=== PATIENT | female | born 1955 | race Two or more races ===

== ENCOUNTER 2020-10-22 22:24 | Inpatient (IN) | payer MEDICAID ==
[~2020-10-22] VITALS: Ht 160 cm; Wt 129.7 kg
--- NOTE | 2020-10-23 00:25 | NUR ---
MALTED MILK MIXER NOTE ADMITTED PT FROM [facility] A DIRECT ADMIT FOR DRY COUGH, HEADACHE, GENERALIZED WEAKNESS, AND COVID POSITIVE. REPORT RECEIVED FROM DEBRA GUTIERREZ FROM [facility]. PATIENT IS A&OX4, AMBULATORY. PT NOW ON TELE MONITOR WITH NORMAL SR. PT O2 SAT WAS 90% ON RA, PT PUT ON 2L O2 VIA NC NOW SATURATING 97-98%. NO S/S OF RESPIRATORY DISTRESS, SOB. SKIN ASSESSMENT IMPLEMENTED WITH NO S/S IF SKIN PROBLEMS. PT DENIES ANY PAIN. PT HAS RIGHT AC IV LINE 20 GAUGE FLUSHING WELL AND INTACT. ALL SAFETY MEASURES IMPLEMENTED. BED LOCKED AND IN LOWEST POSITION. SIDE RAILS UP. CALL LIGHT WITHIN REACH. BED ALARM ON. WILL CONTINUE TO MONITOR THROUGHOUT THE SHIFT.
[2020-10-23] MEDS ORDERED: ONDANSETRON HCL/PF 4 MG/2 ML VIAL IVP PRN (01:30)
[2020-10-23] MEDS ORDERED: ALBUTEROL SULFATE 8 GM HFA.AER.AD IH PRN (01:30)
[2020-10-23 04:00] VITALS: BP 133/72
[2020-10-23 06:01] LABS: BASOPHILS % (AUTO) 0.5 % (0.0-2.0); EOSINOPHILS % (AUTO) 0.1 % (0.0-6.0); HEMATOCRIT 36 % (33-45); HEMOGLOBIN 11.9 g/dL (11.5-14.8); LYMPHOCYTES # (AUTO) 0.6 K/uL (0.8-4.8); LYMPHOCYTES % (AUTO) 8.8 % (20.0-44.0); MEAN CORPUSCULAR HGB CONC 33 g/dl (31.0-36.0); MEAN CORPUSCULAR VOLUME 88 fL (82-100); MONOCYTES # (AUTO) 0.5 K/uL (0.1-1.30); MONOCYTES % (AUTO) 8.4 % (2.0-12.0); NEUTROPHILS # (AUTO) 5.2 K/uL (1.8-8.9); NEUTROPHILS % (AUTO) 82.2 % (43.0-81.0); PLATELET COUNT (AUTO) 178 K/uL (150-450); RED BLOOD CELL COUNT(AUTO) 4.07 MIL/uL (4.0-5.2); WHITE BLOOD COUNT (AUTO) 6.3 K/uL (4.3-11.0)
[2020-10-23] MEDS: ENOXAPARIN SODIUM 40 MG/0.4 ML DISP.SYRIN SQ SCH (06:05)
[2020-10-23] MEDS: ACETAMINOPHEN 325 MG TABLET PO PRN ×2 (06:16→12:33)
--- NOTE | 2020-10-23 06:18 | NUR ---
RN NOTES PT HAD LOW GRADE FEVER 100.0. TYLENOL 650 MG PO ADMINISTERED TO HELP REDUCE TEMP. WILL CONTINUE TO ASSESS.
--- NOTE | 2020-10-23 06:32 | NUR ---
RN CLOSING NOTES PT IS IN BED, ALERT AND ORIENTED X4. RESTING WITH NO S/S OF DISTRESS. PATIENT IS ON 2L OF 02 VIA NC WITH OXYGEN SATURATION 95% SHOWING NO S/S OF SOB, RESPIRATORY DISTRESS. PATIENT IS NORMAL SR. PT HAS RIGHT AC 20 G FLUSHED INTACT AND PATENT. ALL SAFETY PRECAUTIONS INITIATED. BED LOCKED AND IN LOWEST POSITION. BED ALARM ON. CALL LIGHT WITHIN REACH. SIDE RAILS UP. WILL ENDORSE TO MORNING SHIFT FOR ALEENA.
[2020-10-23 06:41] LABS: ALBUMIN 3.6 g/dL (3.4-5.0); BILIRUBIN,TOTAL 0.3 mg/dL (0.2-1.0); CALCIUM, SERUM 8.4 mg/dL (8.5-10.1); POTASSIUM 3.8 mmol/L (3.5-5.1); TOTAL PROTEIN, SERUM 7.8 g/dL (6.4-8.2)
[2020-10-23 07:41] LABS: D-DIMER 7.54 mg/L(FEU (0.17-0.50)
[2020-10-23 07:56] LABS: C-REACTIVE PROTEIN 9.5 mg/dL (0.0-0.9)
[2020-10-23 08:00] VITALS: BP 104/54
[2020-10-23] MEDS ORDERED: HYDR12.55 PO (08:11)
[2020-10-23] MEDS ORDERED: AMLO-213 PO (08:11)
[2020-10-23] MEDS ORDERED: ROSU20TA2 PO (08:11)
--- NOTE | 2020-10-23 11:28 | NUR ---
Patient refuses cooling measures at this time. Ervin Narayan RN
[2020-10-23 12:00] VITALS: BP 125/67
[2020-10-23] MEDS: AZITHROMYCIN 500 MG in IV D5W 250 ML IV SCH (13:40)
[2020-10-23] MEDS: DEXAMETHASONE SOD PHOSPHATE 10 MG/ML VIAL IV SCH (13:40)
[2020-10-23 16:00] VITALS: BP 128/62
[2020-10-23] MEDS ORDERED: REMDESIVIR (CHARGED) 200 MG, *LOADING DOSE 1 EA in IV NS 0.9% 210 ML IV ONE (16:00)
--- NOTE | 2020-10-23 19:30 | NUR ---
RN OPENING NOTE PT RECEIVED IN BED A&OX4, AMBULATORY. PT ON TELE MONITOR WITH NORMAL SR. PT ON 2L O2 VIA NC SATURATING >95%. NO S/S OF RESPIRATORY DISTRESS, SOB. PT HAS RIGHT AC IV LINE 20 GAUGE FLUSHING WELL AND INTACT. ALL SAFETY MEASURES IMPLEMENTED. BED LOCKED AND IN LOWEST POSITION. SIDE RAILS UP. CALL LIGHT WITHIN REACH. BED ALARM ON. WILL CONTINUE TO MONITOR THROUGHOUT THE SHIFT.
[2020-10-23 20:00] VITALS: BP 133/62
[2020-10-23] MEDS: CEFTRIAXONE 1 G in IV D5W 50 ML IV SCH (22:08)
[2020-10-24] VITALS: BP 128/71
[2020-10-24 04:00] VITALS: BP 132/68
[2020-10-24 05:59] LABS: BASOPHILS % (AUTO) 0.3 % (0.0-2.0); HEMATOCRIT 34 % (33-45); HEMOGLOBIN 11.4 g/dL (11.5-14.8); LYMPHOCYTES # (AUTO) 0.6 K/uL (0.8-4.8); LYMPHOCYTES % (AUTO) 15.1 % (20.0-44.0); MEAN CORPUSCULAR HGB CONC 33 g/dl (31.0-36.0); MEAN CORPUSCULAR VOLUME 90 fL (82-100); MONOCYTES # (AUTO) 0.5 K/uL (0.1-1.30); MONOCYTES % (AUTO) 12.5 % (2.0-12.0); NEUTROPHILS % (AUTO) 72.1 % (43.0-81.0); PLATELET COUNT (AUTO) 168 K/uL (150-450); RED BLOOD CELL COUNT(AUTO) 3.84 MIL/uL (4.0-5.2); WHITE BLOOD COUNT (AUTO) 4.1 K/uL (4.3-11.0)
[2020-10-24 06:23] LABS: ALBUMIN 3.2 g/dL (3.4-5.0); BILIRUBIN,TOTAL 0.3 mg/dL (0.2-1.0); CALCIUM, SERUM 8.1 mg/dL (8.5-10.1); POTASSIUM 4.1 mmol/L (3.5-5.1); TOTAL PROTEIN, SERUM 7.3 g/dL (6.4-8.2)
--- NOTE | 2020-10-24 06:43 | NUR ---
RN CLOSING NOTES NO SIGNIFICANT CHANGES IN PT CONDITION. PT IS IN BED, ALERT AND ORIENTED X4. PATIENT IS ON 2L OF 02 VIA NC WITH OXYGEN SATURATION >94% SHOWING NO S/S OF SOB, RESPIRATORY DISTRESS. PATIENT IS NORMAL SINUS RHYTHM. PT HAS RIGHT AC 20G FLUSHED INTACT AND PATENT. ALL SAFETY PRECAUTIONS INITIATED. BED LOCKED AND IN LOWEST POSITION. BED ALARM ON. CALL LIGHT WITHIN REACH. SIDE RAILS UP. WILL ENDORSE TO MORNING SHIFT FOR ALEENA.
[2020-10-24 08:00] VITALS: BP 128/71
[2020-10-24] MEDS: PANTOPRAZOLE 40 MG TABLET.DR PO SCH (08:13)
[2020-10-24] MEDS: DEXAMETHASONE SOD PHOSPHATE 10 MG/ML VIAL IV SCH (08:36)
[2020-10-24] MEDS: ENOXAPARIN SODIUM 40 MG/0.4 ML DISP.SYRIN SQ SCH (08:37)
--- NOTE | 2020-10-24 11:35 | NUR ---
Doctor Debra ambrose. Informed about convalescent plasma request per daughter. No order at this time per MD. Funeral Director/Embalmer obtained consent for blood transfusion 10/23/20 per orders. Ervin Narayan RN
[2020-10-24 12:00] VITALS: BP 131/59
[2020-10-24] MEDS: AZITHROMYCIN 500 MG in IV D5W 250 ML IV SCH (13:14)
[2020-10-24] MEDS: REMDESIVIR (CHARGED) 100 MG in IV NS 0.9% 100 ML IV SCH (15:53)
[2020-10-24 16:00] VITALS: BP 108/55
--- NOTE | 2020-10-24 19:45 | NUR ---
RN NOTE RECEIVED PT IN BED, ON O2 VIA NC AT 3L. SATING 98 %. DENIES SOB OR PAIN. NO DISCOMFORT NOTED. ON TELE MONITORING SHOWS SR. PT INDEPENDENT, ABLE TO SIT ON SIDE OF THE BED AND AMBULATES TO RESTROOM. IV ON RAC, FLUSHES WELL. ALL SAFETY IN PLACE. WILL CONTINUE TO MONITOR.
[2020-10-24 20:00] VITALS: BP 132/64
[2020-10-24] MEDS: CEFTRIAXONE 1 G in IV D5W 50 ML IV SCH (21:15)
[2020-10-25] VITALS: BP 122/35
[2020-10-25 04:00] VITALS: BP 110/58
[2020-10-25 06:34] LABS: BASOPHILS % (AUTO) 0.2 % (0.0-2.0); HEMATOCRIT 36 % (33-45); HEMOGLOBIN 11.7 g/dL (11.5-14.8); LYMPHOCYTES # (AUTO) 0.8 K/uL (0.8-4.8); LYMPHOCYTES % (AUTO) 29.4 % (20.0-44.0); MEAN CORPUSCULAR HGB CONC 33 g/dl (31.0-36.0); MEAN CORPUSCULAR VOLUME 89 fL (82-100); MONOCYTES # (AUTO) 0.5 K/uL (0.1-1.30); NEUTROPHILS # (AUTO) 1.5 K/uL (1.8-8.9); NEUTROPHILS % (AUTO) 53.4 % (43.0-81.0); PLATELET COUNT (AUTO) 177 K/uL (150-450); RED BLOOD CELL COUNT(AUTO) 4.04 MIL/uL (4.0-5.2); WHITE BLOOD COUNT (AUTO) 2.7 K/uL (4.3-11.0)
--- NOTE | 2020-10-25 06:45 | NUR ---
RN NOTE PT ABLE TO MAKE NEEDS KNOWN. REMAIN AFEBRILE. NO RESP DISTRESS NOTED. TOLERATING O2 AT 3L. DENIES ANY SOB OR PAIN. ALL NEEDS ATTENDED. VS STABLE. WILL ENDORSE TO NEXT SHIFT NURSE FOR ALEENA.
[2020-10-25 07:43] LABS: ALBUMIN 3.1 g/dL (3.4-5.0); BILIRUBIN,DIRECT 0.1 mg/dL (0.0-0.2); BILIRUBIN,TOTAL 0.2 mg/dL (0.2-1.0); CALCIUM, SERUM 8.4 mg/dL (8.5-10.1); CREATININE 0.9 mg/dL (0.6-1.3); POTASSIUM 4.3 mmol/L (3.5-5.1); TOTAL PROTEIN, SERUM 7.2 g/dL (6.4-8.2)
[2020-10-25 08:00] VITALS: BP 101/53
[2020-10-25] MEDS: PANTOPRAZOLE 40 MG TABLET.DR PO SCH (08:03)
[2020-10-25] MEDS: DEXAMETHASONE SOD PHOSPHATE 10 MG/ML VIAL IV SCH (08:03)
[2020-10-25] MEDS: ENOXAPARIN SODIUM 40 MG/0.4 ML DISP.SYRIN SQ SCH (08:04)
--- NOTE | 2020-10-25 09:34 | NUR ---
RN NOTE PATIENT IS IN BED WITH HOB AT SEMI FOWLERS POSITION. PATIENT IS ON 3L NC WITH NO SIGNS OF LABORED BREATHING. PATIENT IS AOX4. RAC 20 IS PATENT AND INTACT. BED IS LOCKED IN THE LOWEST POSITION, 3 GUARD RAILS RAISED, CALL MOSES WITHIN REACH, AND ALL HOSPITAL SAFETY PRECAUTIONS ARE BEING FOLLOWED. WILL CONTINUE TO MONITOR THROUGHOUT SHIFT.
[2020-10-25] MEDS ORDERED: GUAIFENESIN/D-METHORPHAN HB 5 ML UDC PO PRN (11:00)
[2020-10-25 12:00] VITALS: BP 105/43
[2020-10-25 12:02] LABS: BAND % (MANUAL) 4 % (0.0-5.0); LYMPHOCYTES % (MANUAL) 23 % (16-48); MONOCYTES % (MANUAL) 21 % (0-11.0); NEUTROPHILS % (MANUAL) 52 (42-76)
[2020-10-25] MEDS: AZITHROMYCIN 500 MG in IV D5W 250 ML IV SCH (13:07)
[2020-10-25] MEDS: REMDESIVIR (CHARGED) 100 MG in IV NS 0.9% 100 ML IV SCH (15:42)
[2020-10-25 16:00] VITALS: BP 120/59
--- NOTE | 2020-10-25 18:52 | NUR ---
RN NOTE PATIENT IS IN BED WITH HOB AT SEMI FOWLERS POSITION. PATIENT IS ON 3L NC WITH NO SIGNS OF LABORED BREATHING. PATIENT IS AOX4. RAC 20 IS PATENT AND INTACT. BED IS LOCKED IN THE LOWEST POSITION, 3 GUARD RAILS RAISED, CALL MOSES WITHIN REACH, AND ALL HOSPITAL SAFETY PRECAUTIONS ARE BEING FOLLOWED. ALL DUE MEDS GIVEN AND PATIENT REMAINED STABLE THROUGHOUT SHIFT. WILL ENDORSE TO SHADE CUTTER RN.
--- NOTE | 2020-10-25 19:20 | NUR ---
RN OPENING NOTES RECD PT IN BED, A/O X4, SWEDISH SPEAKING, UNDERSTANDS ROMANSH ABLE TO MAKE NEEDS KNOWN. PT IS ON ROOM AIR AT THIS TIME, NO SOB NOTED NO RESP DISTRESS. PT IS ON TELE MONITORING PRESENTS WITH NSR HR IN 70S. PT HAS IV RAC, FLUSHED PATENT. PT IS AMBULATORY WITH STEADY GAIT. ALL NEEDS ATTENDED. PT DENIES PAIN. SAFETY MEASURES IN PLACE HOB ELEVATED. SIDE RAILS UP X2 BED LOCKED IN LOWEST POSITION WITH BED ALARM ON, CALL LIGHT WITHIN REACH. WILL CONT TO MONITOR THROUGHOUT SHIFT CLOSELY.
[2020-10-25 20:00] VITALS: BP 117/62
[2020-10-25] MEDS: CEFTRIAXONE 1 G in IV D5W 50 ML IV SCH (21:13)
[2020-10-26] VITALS: BP 113/68
[2020-10-26 04:00] VITALS: BP 120/59
[2020-10-26 06:53] LABS: BASOPHILS % (AUTO) 0.2 % (0.0-2.0); HEMATOCRIT 35 % (33-45); HEMOGLOBIN 11.7 g/dL (11.5-14.8); LYMPHOCYTES # (AUTO) 1.2 K/uL (0.8-4.8); LYMPHOCYTES % (AUTO) 28.2 % (20.0-44.0); MEAN CORPUSCULAR HGB CONC 33 g/dl (31.0-36.0); MEAN CORPUSCULAR VOLUME 90 fL (82-100); MONOCYTES # (AUTO) 0.6 K/uL (0.1-1.30); MONOCYTES % (AUTO) 15.1 % (2.0-12.0); NEUTROPHILS # (AUTO) 2.4 K/uL (1.8-8.9); NEUTROPHILS % (AUTO) 56.5 % (43.0-81.0); PLATELET COUNT (AUTO) 182 K/uL (150-450); RED BLOOD CELL COUNT(AUTO) 3.94 MIL/uL (4.0-5.2); WHITE BLOOD COUNT (AUTO) 4.2 K/uL (4.3-11.0)
--- NOTE | 2020-10-26 06:55 | NUR ---
RN CLOSING NOTE NO SIGNIFICANT CHANGES IN PT CONDITION. STILL ON 3L OF O2 VIA NC. TOLERATING WELL. ALL NEEDS ATTENDED. ALL DUE MEDS GIVEN. PT DENIES PAIN. PT GOES HR 49-50S WHEN ASLEEP, AT THIS TIME, HR IS AT 53. SAFETY MEASURES IN PLACE. HOB. ELEVATED. SIDE RAILS UP X2 BED LOCKED IN LOWEST POSITION. WILL ENDORSE TO DAY SHIFT RN FOR CONTINUATION OF CARE.
[2020-10-26 06:59] LABS: ALBUMIN 3.1 g/dL (3.4-5.0); BILIRUBIN,DIRECT 0.1 mg/dL (0.0-0.2); BILIRUBIN,TOTAL 0.2 mg/dL (0.2-1.0); CALCIUM, SERUM 9.1 mg/dL (8.5-10.1); CREATININE 0.9 mg/dL (0.6-1.3); MAGNESIUM 2.1 mg/dL (1.8-2.4); PHOSPHORUS 3.3 mg/dL (2.5-4.9); POTASSIUM 4.5 mmol/L (3.5-5.1); TOTAL PROTEIN, SERUM 6.9 g/dL (6.4-8.2)
[2020-10-26] MEDS: PANTOPRAZOLE 40 MG TABLET.DR PO SCH (07:45)
--- NOTE | 2020-10-26 07:47 | NUR ---
RN OPENING NOTES RECEIVED PATIENT IS ON BED AWAKE ALERT AND ORIENTED X4. PATIENT IS ON 3L OXYGEN VIA NASAL CANNULA TOLERATING WELL. PATIENT IN NO APPARENT RESPIRATORY DISTRESS NOTED. NO COMPLAINED OF PAIN AT THIS TIME. WILL CONTINUE TO MONITOR.
[2020-10-26 08:00] VITALS: BP 148/70
[2020-10-26 08:30] LABS: ABG BASE EXCESS 5.2 mmol/L; ABG PCO2 43.2 mmHg (35.0-45.0); ABG PH 7.455 (7.350-7.450); ABG PO2 59.3 mmHg (75.0-100.0); AaDO2 38.7 mmHg; COHb 0.1 % (0.5-1.5); O2Hb 91.9 % (94.0-97.0); SITE, ABG Right Radial; VENT MODE, BG room air
[2020-10-26] MEDS: DEXAMETHASONE SOD PHOSPHATE 10 MG/ML VIAL IV SCH (08:33)
[2020-10-26] MEDS: ENOXAPARIN SODIUM 40 MG/0.4 ML DISP.SYRIN SQ SCH (08:42)
[2020-10-26 12:00] VITALS: BP 95/65
[2020-10-26] MEDS: AZITHROMYCIN 500 MG in IV D5W 250 ML IV SCH (14:17)
[2020-10-26 16:00] VITALS: BP 110/77
[2020-10-26] MEDS: REMDESIVIR (CHARGED) 100 MG in IV NS 0.9% 100 ML IV SCH (16:56)
--- NOTE | 2020-10-26 19:20 | NUR ---
TELE/RN CLOSING NOTES PATIENT IS ON BED AWAKE ALERT AND ORIENTED X4. PATIENT IS ON 2L OXYGEN VIA NASAL CANNULA ON AND OFF. TOLERATING WELL. PATIENT IN NO APPARENT RESPIRATORY DISTRESS NOTED. NO COMPLAINED OF PAIN AT THIS TIME. TELE MONITOR READING SINUS RHYTHM 97 BPM. SEEN AND EXAMINED BY MD WITH ORDERS MADE AND CARRIED OUT. ALL DUE MEDICATIONS WAS GIVEN. IV ACCESS AT RIGHT AC #20G PATENT AND INTACT. SAFETY PRECAUTION WAS IN PLACED. BED IN LOWEST POSITION AND LOCKED. SIDE RAILS UP X2. WILL ENDORSED TO ELECTRODE CLEANING MACHINE OPERATOR FOR ALEENA.
--- NOTE | 2020-10-26 19:50 | NUR ---
back tender cylinder Notes Patient was last seen awake in bed. Patient's alert and oriented x4. Patient's on 2 liters of oxygen/min. via nasal cannula, with room air with no respiratory distress noted. Patient's connected to a tele monitor with no cardiac distress noted. Patient has a saline lock on her RAC G#20 which is intact, patent, and flushing well. Patient's in no acute distress at this time. Safety measures in place: Bed locked, side rails up x2, and call light within reach. Will continue to monitor the patient. Addendum: 10/26/20 at 1952 by BILL OLGUIN RN back tender cylinder Notes Patient was last seen awake in bed. Patient's alert and oriented x4. Patient's on 2 liters of oxygen/min. via nasal cannula with no respiratory distress noted. Patient's connected to a tele monitor with no cardiac distress noted. Patient has a saline lock on her RAC G#20 which is intact, patent, and flushing well. Patient's in no acute distress at this time. Safety measures in place: Bed locked, side rails up x2, and call light within reach. Will continue to monitor the patient. Addendum: 10/26/20 at 1952 by BILL OLGUIN RN Lulu Hernandez Notes
[2020-10-26 20:00] VITALS: BP 143/85
[2020-10-26] MEDS: CEFTRIAXONE 1 G in IV D5W 50 ML IV SCH (21:38)
[2020-10-27] VITALS: BP 150/62
[2020-10-27] MEDS: MAGNESIUM HYDROXIDE 30 ML UDC PO PRN (00:58)
[2020-10-27 04:00] VITALS: BP 127/63
[2020-10-27] MEDS: ACETAMINOPHEN 325 MG TABLET PO PRN (04:59)
[2020-10-27 06:19] LABS: BASOPHILS % (AUTO) 0.2 % (0.0-2.0); HEMATOCRIT 39 % (33-45); HEMOGLOBIN 12.9 g/dL (11.5-14.8); LYMPHOCYTES # (AUTO) 1.1 K/uL (0.8-4.8); LYMPHOCYTES % (AUTO) 19.1 % (20.0-44.0); MEAN CORPUSCULAR HGB CONC 33 g/dl (31.0-36.0); MEAN CORPUSCULAR VOLUME 89 fL (82-100); MONOCYTES # (AUTO) 0.8 K/uL (0.1-1.30); MONOCYTES % (AUTO) 13.4 % (2.0-12.0); NEUTROPHILS # (AUTO) 3.8 K/uL (1.8-8.9); NEUTROPHILS % (AUTO) 67.3 % (43.0-81.0); PLATELET COUNT (AUTO) 178 K/uL (150-450); RED BLOOD CELL COUNT(AUTO) 4.36 MIL/uL (4.0-5.2); WHITE BLOOD COUNT (AUTO) 5.7 K/uL (4.3-11.0)
--- NOTE | 2020-10-27 06:41 | NUR ---
cpa tax Closing Notes Patient was last seen awake in bed. Patient's alert and oriented x4. Patient's on room air with no respiratory distress noted. Patient's connected to a tele monitor showing sinus rhythm with a heart rate of 76bpm. Patient has a saline lock on her RAC G#20 which is intact, patent, and flushing well. Patient's in no acute distress at this time. Safety measures in place: Bed locked, side rails up x2, and call light within reach. Will endorse care to the day shift nurse.
[2020-10-27 07:15] LABS: ALBUMIN 3.3 g/dL (3.4-5.0); BILIRUBIN,DIRECT 0.1 mg/dL (0.0-0.2); BILIRUBIN,TOTAL 0.3 mg/dL (0.2-1.0); CALCIUM, SERUM 8.7 mg/dL (8.5-10.1); CREATININE 1.1 mg/dL (0.6-1.3); MAGNESIUM 1.8 mg/dL (1.8-2.4); PHOSPHORUS 3.1 mg/dL (2.5-4.9); POTASSIUM 4.4 mmol/L (3.5-5.1); TOTAL PROTEIN, SERUM 7.5 g/dL (6.4-8.2)
--- NOTE | 2020-10-27 07:15 | NUR ---
RN NOTE PATIENT OBSERVED IN BED ALERT AND ORIENTED X4, ABLE TO VERBALIZE NEEDS O2 SAT OF 98% BREATHING EVEN AND UNLABORED, COVID PRECAUTION OBSERVED TELE MONITOR SR OF 80, DENIES ANY PAIN, SKIN INTACT, IV SITE ON RIGHT AC G20 PATENT FLUSHING WELL, CONTINENT ON BOWEL AND BLADDER, CALL LIGHT WITHIN REACH, BED WHEELS LOCK, BED ALARM ON, WILL CONTINUE TO MONITOR PATIENT.
[2020-10-27 08:00] VITALS: BP_SYST 95; BP_DIAS 43; BP_DIAS 60
[2020-10-27] MEDS: PANTOPRAZOLE 40 MG TABLET.DR PO SCH (08:10)
[2020-10-27] MEDS: DEXAMETHASONE SOD PHOSPHATE 10 MG/ML VIAL IV SCH (08:13)
[2020-10-27] MEDS: ENOXAPARIN SODIUM 40 MG/0.4 ML DISP.SYRIN SQ SCH (08:13)
[2020-10-27 12:00] VITALS: BP 103/63
[2020-10-27] MEDS: AZITHROMYCIN 500 MG in IV D5W 250 ML IV SCH (14:18)
[2020-10-27 16:00] VITALS: BP 121/70
[2020-10-27] MEDS: REMDESIVIR (CHARGED) 100 MG in IV NS 0.9% 100 ML IV SCH (16:32)
--- NOTE | 2020-10-27 18:57 | NUR ---
RN NOTE PATIENT OBSERVED IN BED ALERT AND ORIENTED X4, ABLE TO VERBALIZE NEEDS O2 SAT OF 98% BREATHING EVEN AND UNLABORED, COVID PRECAUTION OBSERVED TELE MONITOR SR OF 69, DENIES ANY PAIN, SKIN INTACT, IV SITE ON RIGHT AC G20 PATENT FLUSHING WELL, ADMINISTERED DECADRON NO ASE NOTED. CONTINENT ON BOWEL AND BLADDER, CALL LIGHT WITHIN REACH, BED WHEELS LOCK, BED ALARM ON, WILL CONTINUE TO MONITOR PATIENT. WILL ENDORSE TO NOC SHIFT
--- NOTE | 2020-10-27 19:24 | NUR ---
REMARKETING MANAGER NOTES PATIENT RECEIVED IN BED ALERT AND ORIENTED X4, ABLE TO VERBALIZE NEEDS O2 SAT OF 98% BREATHING EVEN AND UNLABORED, COVID PRECAUTION OBSERVED TELE MONITOR SR OF 69, DENIES ANY PAIN, SKIN INTACT, IV SITE ON RIGHT AC G20 PATENT FLUSHING WELL CALL LIGHT WITHIN REACH, BED WHEELS LOCK, BED ALARM ON, WILL CONTINUE TO MONITOR PATIENT. WILL CONTINUE TO MONITOR.
[2020-10-27 20:00] VITALS: BP 126/68
[2020-10-27] MEDS: CEFTRIAXONE 1 G in IV D5W 50 ML IV SCH (22:13)
[2020-10-28] VITALS (7 sets, daily range): BP systolic 91–130; BP diastolic 42–61
[2020-10-28 06:39] LABS: BASOPHILS % (AUTO) 0.2 % (0.0-2.0); HEMATOCRIT 37 % (33-45); HEMOGLOBIN 12.1 g/dL (11.5-14.8); LYMPHOCYTES % (AUTO) 26.7 % (20.0-44.0); MEAN CORPUSCULAR HGB CONC 33 g/dl (31.0-36.0); MEAN CORPUSCULAR VOLUME 88 fL (82-100); MONOCYTES # (AUTO) 0.8 K/uL (0.1-1.30); MONOCYTES % (AUTO) 20.7 % (2.0-12.0); NEUTROPHILS # (AUTO) 1.9 K/uL (1.8-8.9); NEUTROPHILS % (AUTO) 52.4 % (43.0-81.0); PLATELET COUNT (AUTO) 168 K/uL (150-450); RED BLOOD CELL COUNT(AUTO) 4.18 MIL/uL (4.0-5.2); WHITE BLOOD COUNT (AUTO) 3.6 K/uL (4.3-11.0)
[2020-10-28 06:59] LABS: ALBUMIN 3.2 g/dL (3.4-5.0); BILIRUBIN,DIRECT 0.1 mg/dL (0.0-0.2); BILIRUBIN,TOTAL 0.3 mg/dL (0.2-1.0); CALCIUM, SERUM 8.6 mg/dL (8.5-10.1); CREATININE 0.9 mg/dL (0.6-1.3); MAGNESIUM 2.5 mg/dL (1.8-2.4); PHOSPHORUS 3.8 mg/dL (2.5-4.9); POTASSIUM 4.2 mmol/L (3.5-5.1); TOTAL PROTEIN, SERUM 7.3 g/dL (6.4-8.2)
--- NOTE | 2020-10-28 07:15 | NUR ---
RN NOTE PATIENT OBSERVED IN BED ALERT AND ORIENTED X4, ABLE TO VERBALIZE NEEDS, O2 VIA NC @4LPM SAT OF 98% BREATHING EVEN AND UNLABORED, AFEBRILE AT THIS TIME, COVID PRECAUTION OBSERVED TELE MONITOR SR OF 74, DENIES ANY PAIN, SKIN INTACT, IV SITE ON RIGHT AC G20 PATENT FLUSHING WELL, CONTINENT ON BOWEL AND BLADDER, CALL LIGHT WITHIN REACH, BED WHEELS LOCK, BED ALARM ON, WILL CONTINUE TO MONITOR PATIENT.
[2020-10-28] MEDS: PANTOPRAZOLE 40 MG TABLET.DR PO SCH (08:16)
[2020-10-28] MEDS: DEXAMETHASONE SOD PHOSPHATE 10 MG/ML VIAL IV SCH (08:17)
[2020-10-28] MEDS: ENOXAPARIN SODIUM 40 MG/0.4 ML DISP.SYRIN SQ SCH (08:18)
--- NOTE | 2020-10-28 18:37 | NUR ---
RN NOTE PATIENT OBSERVED IN BED ALERT AND ORIENTED X4, ABLE TO VERBALIZE NEEDS, O2 VIA NC @2LPM SAT OF 96% BREATHING EVEN AND UNLABORED TOLERATING WELL, AFEBRILE AT THIS TIME, SEEN BY PING NYE FOR DISCHARGE TOMORROW WITH O2 TANK INSIDE THE ROOM FOR PATIENT TO BRING HOME. COVID PRECAUTION OBSERVED TELE MONITOR SR OF 66, DENIES ANY PAIN, SKIN INTACT, IV SITE ON RIGHT AC G20 PATENT FLUSHING WELL, CONTINENT ON BOWEL AND BLADDER, CALL LIGHT WITHIN REACH, BED WHEELS LOCK, BED ALARM ON, WILL CONTINUE TO MONITOR PATIENT. WILL ENDORSE TO NOC SHIFT.
--- NOTE | 2020-10-28 19:30 | NUR ---
RN NOTE REPORT RECEIVED FROM UMA RICHARDSON, PATIENT IN BED, AAO X 4, IN NO S/SX OF ACUTE DISTRESS AT THIS TIME, BREATHING EVEN AND UNLABORED, SATURATION AT 95% ON 2LPM VIA NC, SR ON THE MONITOR, HR IS 60. NOTED IV SITE AT RAC 20G, BOTH HUBS PATENT AND FLUSHING WELL, NO S/S OF INFECTION OR INFILTRATION. SAFETY MEASURES IMPLEMENTED. PATIENT BED ALARM IS ON. HEAD OF BED ELEVATED. BED IS LOCKED, IN LOWEST POSITION AND SIDE RAILS UP. CALL LIGHT WITHIN REACH OF THE PATIENT. WILL CONTINUE TO MONITOR AND REASSESS FOR ANY CHANGES.
[2020-10-29] VITALS: BP 134/69
[2020-10-29] MEDS: MAGNESIUM HYDROXIDE 30 ML UDC PO PRN (01:37)
[2020-10-29 04:00] VITALS: BP 136/69
[2020-10-29 06:16] LABS: BASOPHILS % (AUTO) 0.1 % (0.0-2.0); EOSINOPHILS % (AUTO) 0.1 % (0.0-6.0); HEMATOCRIT 37 % (33-45); HEMOGLOBIN 12.2 g/dL (11.5-14.8); LYMPHOCYTES # (AUTO) 1.4 K/uL (0.8-4.8); LYMPHOCYTES % (AUTO) 24.2 % (20.0-44.0); MEAN CORPUSCULAR HGB CONC 33 g/dl (31.0-36.0); MEAN CORPUSCULAR VOLUME 89 fL (82-100); MONOCYTES # (AUTO) 0.9 K/uL (0.1-1.30); MONOCYTES % (AUTO) 15.4 % (2.0-12.0); NEUTROPHILS # (AUTO) 3.4 K/uL (1.8-8.9); NEUTROPHILS % (AUTO) 60.2 % (43.0-81.0); PLATELET COUNT (AUTO) 145 K/uL (150-450); RED BLOOD CELL COUNT(AUTO) 4.15 MIL/uL (4.0-5.2); WHITE BLOOD COUNT (AUTO) 5.6 K/uL (4.3-11.0)
[2020-10-29 06:34] LABS: CALCIUM, SERUM 8.5 mg/dL (8.5-10.1); CREATININE 0.9 mg/dL (0.6-1.3); MAGNESIUM 2.6 mg/dL (1.8-2.4); PHOSPHORUS 3.5 mg/dL (2.5-4.9); POTASSIUM 4.2 mmol/L (3.5-5.1)
[2020-10-29 08:00] VITALS: BP 138/87
[2020-10-29] MEDS: DEXAMETHASONE SOD PHOSPHATE 10 MG/ML VIAL IV SCH (08:00)
[2020-10-29] MEDS: ENOXAPARIN SODIUM 40 MG/0.4 ML DISP.SYRIN SQ SCH (08:00)
[2020-10-29] MEDS: PANTOPRAZOLE 40 MG TABLET.DR PO SCH (08:00)
[2020-10-29 12:00] VITALS: BP 108/77
--- NOTE | 2020-10-29 12:57 | NUR ---
RN NOTE NOTIFIED DR. BUTLER OF PATIENT SATURATING 92% ON ROOM AIR. OKAY TO DC WITHOUT O2 SUPPORT.
[2020-10-29 16:00] VITALS: BP 113/66
--- NOTE | 2020-10-29 16:10 | NUR ---
RN NOTE PATIENT DISCHARGED ON ROOM AIR IN STABLE CONDITION WITH SON.
== END 2020-10-29 16:50 | disposition home or self-care (01) | DRG 137 ==
LOC: TELE1 10-23 00:19
PROVIDERS: ADMIT Nurse Practitioner Acute Care; ATTEND Student in an Organized Health Care Education/Training Program
PROC: XW033E5 Introduction of Remdesivir Anti-infective into Peripheral Vein, Percutaneous Approach, New Technology Group 5 (ICD-10-PCS; principal; 2020-10-23)
DX: U07.1 COVID-19 (principal); J96.01 Acute respiratory failure with hypoxia; J12.82 Pneumonia due to coronavirus disease 2019; I10 Essential (primary) hypertension; E66.01 Morbid (severe) obesity due to excess calories; Z68.43 Body mass index [BMI] 50.0-59.9, adult; G47.33 Obstructive sleep apnea (adult) (pediatric); Z71.3 Dietary counseling and surveillance; E44.1 Mild protein-calorie malnutrition; J98.11 Atelectasis
CPT/HCPCS: 36415; 36600; 71045-TC; 80048-TC; 80053-TC; 80076-TC; 82728-TC; 83615-TC; 83735-TC; 84100-TC; 84484-TC; 85025-TC; 85378-TC; 85610-TC; 85730-TC; 86140-TC; 86850-TC; 87081-TC; 97116-TC; 97530-TC; A4216; G0378; J0456; J0696; J1100; J1650; J2405; J7030; J7050; J7060